=== PATIENT | female | born 1990 | race Caucasian/White ===

== ENCOUNTER 2017-09-29 23:39 | Inpatient (IN) | payer OTHER, SELFPAY ==
[2017-09-30 00:29] VITALS: BP 119/80
[2017-09-30] MEDS: LACTATED RINGERS 1,000 ML 999 ML IV (00:30)
[2017-09-30 01:01] LABS: Add Manual Diff / Slide Review NO; Basophils Percent Auto 0.8 % (0-2); Eosinophils Percent Auto 0.6 % (2-4); Hematocrit 30.2 % (36-46); Hemoglobin 9.9 g/dL (12.0-16.0); Lymphocytes Percent Auto 28.2 % (25-40); Mean Corpuscular HGB Conc 32.9 % (30-36); Mean Corpuscular Hemoglobin 25.8 PG (26-34); Mean Corpuscular Volume 78.5 fL (80-100); Monocytes Percent Auto 6.3 % (3-14); Neutrophils Absolute Auto 5600 /uL (3000-5900); Neutrophils Percent Auto 64.1 % (50-75); Platelet Count 293 X10^3/uL (150-400); Red Blood Cell Count 3.85 X10^6/uL (4.0-5.2); Red Cell Distribution Width 17.3 % (11.6-14.8); White Blood Cell Count 8.8 X10^3/uL (4.5-11.0)
--- NOTE | 2017-09-30 01:16 | PM.OBHP.1 ---
OB HPI Date/Time Date of admission: 09/30/17 Date Patient Seen: 09/30/17 Time Patient Seen: 01:16 History of Present Illness Chief complaint: EVALUATION OF LABOR : 3 Para: 1 Estimated Date of Delivery: 09/29/17 Estimated Gestational Age (weeks): 40 Narrative: SARAH MOSS is a 26 year old female 3 para 1 who arrived on Labor and delivery with spontaneous rupture membranes in active labor. EDC 09/29/2017 at 40-1/7 weeks by dates History of Present care: good care Dating criteria: LMP confirmed by 1st trimester US Ultrasounds: normal mid trimester US Obstetrical complications: none Medical complications: none Preadmission Labs Blood type: A (+) positive -: Antibody screen: negative, GBS status: negative, HBsAG: negative, HIV: negative and RPR/VDLR: negative -: Chlamydia screen: not detected and Gonorrhea screen: not detected -: Rubella: immune and Varicella: immune HCAB: negative Integrated screen: Normal 1 hr GTT: 137 Prior (ies) History: 01/06/2015 epidural catheter forceps delivery at 39 weeks Evaluation Evaluation Baseline heart rate: 150 Variability: Moderate (11-25) monitor accelerations: Present monitor decelerations: Absent Contraction Frequency (minutes): 3 Uterine Contraction Intensity: Moderate Category of Tracing: I Cervical dilation (cm): 4 Laboratory results: Laboratory Tests 09/30/17 00:40 WBC 8.8 RBC 3.85 L Hgb 9.9 L Hct 30.2 L MCV 78.5 L MCH 25.8 L MCHC 32.9 RDW 17.3 H Plt Count 293 Neut % (Auto) 64.1 Lymph % (Auto) 28.2 [place] % (Auto) 6.3 Eos % (Auto) 0.6 L Baso % (Auto) 0.8 Neut # (Auto) 5600 Non-invasive Membranes Rupture Test: positive PFSH Social History Smoking Status: Never smoker Meds Home Medications Medication Instructions Recorded Confirmed Type 1 tab PO DAILY 09/30/17 09/30/17 History iron 325 mg PO DAILY 09/30/17 09/30/17 History Allergies Allergy/AdvReac Type Severity Reaction Status Date / Time No Known Drug Allergies Allergy Verified 09/30/17 00:29 Review of Systems Review of Systems All systems reviewed & are unremarkable except as noted in HPI and below Exam Vital Signs (past 8 hours): - 09/30/17 00:29 Blood Pressure 119/80 Narrative Exam Narrative: Patient in active labor. Unable to do exam prior to precipitous delivery. Objective Labs Result Diagrams: 09/30/17 00:40 Labs: Laboratory Results - last 24 hr 09/30/17 00:40 WBC 8.8 RBC 3.85 L Hgb 9.9 L Hct 30.2 L MCV 78.5 L MCH 25.8 L MCHC 32.9 RDW 17.3 H Plt Count 293 Neut % (Auto) 64.1 Lymph % (Auto) 28.2 [place] % (Auto) 6.3 Eos % (Auto) 0.6 L Baso % (Auto) 0.8 Neut # (Auto) 5600 Assessment and Plan (1) 40 weeks gestation of : Current visit: Yes Status: Acute (2) Encounter for supervision of other normal , third trimester: Current visit: Yes Status: Acute Normal term in active labor. Anticipate vaginal delivery. Patient requesting epidural.
[2017-09-30] MEDS: LACTATED RINGERS 1,000 ML 100 ML IV (02:00)
[2017-09-30] MEDS: IBUPROFEN 600 MG TABLET PO ×4 (02:00→20:05)
--- NOTE | 2017-09-30 02:14 | PM.OBPRVD ---
Delivery date: 09/30/17 Intrapartal events: Precipitous Labor < 3 hours Induction method: none Delivery monitor: external FHT and external uterine Route of delivery: Laceration description: Vaginal - 1st Degree Estimated blood loss (mL): 150 Anesthesia type: None Narrative: Patient arrived on Labor and delivery in active labor. heart tones were reassuring. She progressed rapidly to complete and pushing. She delivered spontaneously, over an intact perineum. There was a nuchal cord x1. The viable male was placed on the maternal abdomen. After the cord stopped pulsating the cord was clamped and cut. The placenta delivered spontaneously, intact, with 3 vessels. There were no cervical or perineal tears. There is a first-degree tear that did not require suturing in the posterior midline vagina. Both infant and mother did well. Baby 1: Infant gender: Male Presentation: vertex Placenta delivery description: Spontaneous cord vessel description: Nuchal Cord score (1 min): 8 score (5 min): 9 Narrative: Weight 8#3.5oz Plan for aftercare: Routine care
[2017-09-30] MEDS: DERMOPLAST SPRAY 20% 60 ML 1 SPRAY TOP (07:59)
[2017-09-30] MEDS: LANOLIN OINT 7 GM 1 APPLIC TOP (20:06)
[2017-10-01] MEDS: IBUPROFEN 600 MG TABLET PO ×2 (02:15→08:26)
[2017-10-01 07:09] LABS: Add Manual Diff / Slide Review NO; Basophils Percent Auto 0.9 % (0-2); Eosinophils Percent Auto 1.7 % (2-4); Hematocrit 29.6 % (36-46); Hemoglobin 9.4 g/dL (12.0-16.0); Lymphocytes Percent Auto 32.2 % (25-40); Mean Corpuscular HGB Conc 31.9 % (30-36); Mean Corpuscular Hemoglobin 25.5 PG (26-34); Mean Corpuscular Volume 80.1 fL (80-100); Monocytes Percent Auto 4.8 % (3-14); Neutrophils Absolute Auto 6300 /uL (3000-5900); Neutrophils Percent Auto 60.4 % (50-75); Platelet Count 254 X10^3/uL (150-400); Red Cell Distribution Width 17.4 % (11.6-14.8); White Blood Cell Count 10.5 X10^3/uL (4.5-11.0)
[2017-10-01 07:45] VITALS: BP 109/78; PULSE 96; RESP 15; TEMP 37.3
--- NOTE | 2017-10-01 08:50 | PM.OBDS.1 ---
Discharge Providers Date of admission: 09/29/17 23:39 Consults: 09/30/17 05:06 Consult to [employer] Routine Comment: Discharge provider: Marielle Sun MD Summary Date Patient Seen: 10/01/17 Time Patient Seen: 08:51 Hospital Course: Patient arrived on Labor and delivery in active labor and delivered spontaneously. She had no tears. Both and mother did well . She denied any problems with headaches, scotomata, epigastric pain. She had minimal bleeding and minimal pain. No depression. Peripartum Data Delivery Method: Natural Vaginal Laceration description: None Procedures: Spontaneous vaginal delivery complications: none Discharge Diagnosis (1) 40 weeks gestation of : Status: Acute (2) Encounter for supervision of other normal , third trimester: Status: Acute Status at Discharge Functional status at discharge: independent ambulation Overall status at discharge: patient is progressing back to baseline Time Spent with Patient Total time spent providing and/or coordinating discharge services: Less than 30 minutes Objective Labs Result Diagrams: 10/01/17 06:48 Labs: Laboratory Results - last 24 hr 10/01/17 06:48 WBC 10.5 RBC 3.70 L Hgb 9.4 L Hct 29.6 L MCV 80.1 MCH 25.5 L MCHC 31.9 RDW 17.4 H Plt Count 254 Neut % (Auto) 60.4 Lymph % (Auto) 32.2 [place] % (Auto) 4.8 Eos % (Auto) 1.7 L Baso % (Auto) 0.9 Neut # (Auto) 6300 H Discharge Plan Discharge Plan Patient Disposition: Home Discharge Med Rec/Prescriptions Prescriptions: New ibuprofen 600 mg Tablet 600 mg PO Q6HR PRN (Reason: Pain, Mild (1-3)) Qty: 30 RF: 0 docusate sodium 250 mg capsule 250 mg PO DAILY PRN (Reason: constipation) Qty: 20 RF: 0 No Action 1 tab tablet 1 tab PO DAILY RF: 0 iron 325 mg tablet 325 mg PO DAILY RF: 0 Follow up/Referrals: Arlen Rodriguez MD [Physician] - 6 Weeks Provider Discharge Instructions Diet: Regular Activity: nothing in vagina for 6 weeks Skin/Wound/Dressing Care Report to your healthcare provider any signs of infection, such as:: chills, fever, increased pain and unusual drainage Visit Report/Discharge Packet Instructions: DI for Labor and Delivery, Vaginal Discharge Data Attending Provider: Marielle Sun Admit Date/Time: 09/29/17 23:39 Discharge Interventions Interventions: Discharge assessment Last Done: 10/01/17 07:45
== END 2017-10-01 10:21 | disposition home or self-care (01) | DRG 775 ==
PROVIDERS: Admitting Provider Specialist; Visit Provider Specialist
DX: O62.3 Precipitate labor (principal); Z3A.40 40 weeks gestation of pregnancy; Z37.0 Single live birth; O70.0 First degree perineal laceration during delivery
CPT/HCPCS: 36415; 59050; 59409; 84112; 85025; 86850; 86900; 86901; 99221; 99238; G0379